=== PATIENT | female | born 1995 | race African-American/Black ===

== ENCOUNTER 2016-08-02 15:51 | Emergency (ER) | payer BC ==
[2016-08-02 16:06] VITALS: BP 127/77
[2016-08-02 16:32] LABS: RAPID STREP SCREEN REAGENT QC YELLOW (YELLOW)
[2016-08-02 16:34] LABS: HCG UR QUAL NEGATIVE
[2016-08-02] MEDS ORDERED: DEXAMETHASONE 10 MG/ML VIAL PO STA (16:48)
--- NOTE | 2016-08-02 16:51 | ED Physician Documentation ---
History of Present Illness - Stated complaint Stated Complaint: THROAT PX/CHILLS/LETHARGIC - Chief complaint Chief Complaint: Heent - Additonal information Additional information: hx from pt 21 y/o female possibly preg several days of fatigue fever sore throat horse voice bit of a cough no travel or sick contacts Review of Systems Constitutional: reports: Fever, Myalgias, Fatigue Throat: reports: Sore throat Respiratory: reports: Cough : reports: Now EGA (maybe) PD PAST MEDICAL HISTORY - Past Medical History Past Medical History: No - Past Surgical History Past Surgical History: No - Present Medications Home Medications: Ambulatory Orders Medication Instructions Recorded Confirmed Amoxicillin 500 mg PO Q8H #30 capsule 08/02/16 - Allergies Allergies/Adverse Reactions: Allergies Allergy/AdvReac Type Severity Reaction Status Date / Time No Known Drug Allergies Allergy Verified 08/02/16 16:06 - Social History Does the pt smoke?: No Smoking Status: Never smoker Does the pt drink ETOH?: No Does the pt have substance abuse?: No - Immunizations Immunizations are current?: No Immunizations: TDAP >10years/unknown - POLST Patient has POLST: No PD ED PE NORMAL - Vitals Vital signs reviewed: Yes - General General: Alert and oriented X 3 - HEENT HEENT: No: Ears normal (dull), Pharynx benign (markedly enlarged erythematous tonsils with exudate) - Neck Neck: Supple, no meningeal sign - Cardiac Cardiac: RRR - Respiratory Respiratory: No respiratory distress, Clear bilaterally - Abdomen Abdomen: Non tender, No organomegaly - Neuro Neuro: Alert and oriented X 3 Results - Vitals Vitals: Vital Signs - 24 hr 08/02/16 16:03 Temperature 37 C Heart Rate 112 H Respiratory 17 Rate Blood Pressure 127/77 O2 Saturation 100 Oxygen O2 Source Room air - Labs Labs: Laboratory Tests 08/02/16 08/02/16 16:20 16:27 Ur Specific [place] 1.025 Urine HCG, Qual NEGATIVE Group A Strep Rapid Negative PD MEDICAL DECISION MAKING - ED course ED course: neg HCG neg strep but already been taking left over pcn - meets 3/4 centor and suspect strep - will tx Departure - Departure Disposition: 01 Home, Self Care Clinical Impression: Exudative pharyngitis Condition: Good Instructions: ED Strep Pharyngitis Poss Prescriptions: Amoxicillin 500 mg PO Q8H #30 capsule Comments: The test was negative The strep test was negative too but I think that was because you have already been taking antibiotics - your exam strongly suggests strep throat and so i have prescribed antibiotics The steroids we gave you in the ER will help decrease the throat swelling You need to rest and drink plenty of fluids Forms: Activity restrictions
[2016-08-02] MEDS ORDERED: DEXAMETHASONE 10 MG/ML VIAL ONE (16:56)
== END 2016-08-02 17:00 | disposition home or self-care (01) ==
LOC: ED 15:51
DX: J02.9 Acute pharyngitis, unspecified (principal)
CPT/HCPCS: 81025; 87070; 87430; 99283